=== PATIENT | female | born 1965 ===

== ENCOUNTER → 2018-04-12 | Day surgery (SDC) | payer OTHER ==
[~2018-04-12] MED LIST: Lactated Ringer's 500 ML IV ONE; Propofol 10 mg/ml Inj (20 ML) ONE
[2018-04-12 08:29] VITALS: BMI 17.7
[2018-04-12 08:39] VITALS: O2SAT 100
[2018-04-12 10:38] VITALS: BP 98/53; PULSE 64; RESP 17; TEMP 97.6
== END | disposition home or self-care (01) ==
LOC: H.ENDO 07:48
PROVIDERS: ATTEND Internal Medicine Gastroenterology
DX: Z12.11 Encounter for screening for malignant neoplasm of colon (principal); D64.9 Anemia, unspecified; K64.8 Other hemorrhoids
CPT/HCPCS: 45378; J2001; J2704; J7120